=== PATIENT | female | born 1955 | race African-American/Black ===

== ENCOUNTER 2024-08-17 12:34 | Emergency (ER) | payer MEDICARE, MEDICAID, SELFPAY ==
--- NOTE | ~2024-08-17 | XR_ITS ---
EXAMINATION: XR ABDOMEN KUB CLINICAL INDICATION: constipation. abdominal pain COMPARISON: None available. TECHNIQUE: AP view of the abdomen. FINDINGS: Stool within the transverse colon. Gas throughout the intestine. No air-fluid levels. No intestinal dilatation. The dextroconvex rotoscoliosis, lumbar spine. Multilevel thoracolumbar spondylosis. Calcification overlapping the right kidney shadow, right upper quadrant abdomen. Calcifications in the lower pelvis and overlapping the right iliac bone. XR/XR KUB IMPRESSION: No intestinal obstruction pattern. Scoliosis. Multilevel thoracolumbar spondylosis. Calcifications in the right hemiabdomen cochlear exact location. Electronically signed by: José Antonio Garza MD 08/17/2024 03:06 PM QUIN RP
[2024-08-17 13:22] VITALS: BP 148/82; PULSE 79; RESP 18; TEMP 37.3; O2SAT 98; BMI 32.1
--- NOTE | 2024-08-17 13:27 | ECG_ITS ---
Test Reason : ABDOMINAL PAIN Blood Pressure : / mmHG Vent. Rate : 076 BPM Atrial Rate : 076 BPM P-R Int : 164 ms QRS Dur : 092 ms QT Int : 386 ms P-R-T Axes : 063 -21 043 degrees QTc Int : 434 ms Normal sinus rhythm with sinus arrhythmia Low voltage QRS Cannot rule out Anterior infarct , age undetermined Abnormal ECG No previous ECGs available Referred By: Leonard Yoder Electronically Signed By:Jesus Tidwell
--- NOTE | 2024-08-17 13:28 | ED.GENADULT ---
HPI - General Adult General Chief complaint: Nausea/Vomiting/Diarrhea Stated complaint: vomiting Time Seen by Provider: 08/18/24 00:40 Source: patient Mode of arrival: ambulatory Limitations: no limitations History of Present Illness ED Provider: Dr. Norma Jiménez HPI narrative: Patient comes to the emergency room complaining of nausea and vomiting caused by antibiotics and constipation. Patient states that she was diagnosed with a UTI 2 weeks ago. Patient was taking cephalexin but did not tolerate well the medication due to significant vomiting. Then, patient's antibiotics were switched to Bactrim. According to the patient, was doing better initially. Stopped taking the antibiotics after she finish her course and then started having nausea vomiting again, and back pain. Patient states that the UTI likely returned. Patient denies fever chills. Patient does not have flank pain this time. However, patient states that she is still having intermittent episodes of nausea and vomiting. Related Data Previous Rx's ?Medication ?Instructions ?Recorded levofloxacin 500 mg tablet 500 mg PO DAILY #7 tabs 08/18/24 ondansetron HCl 4 mg tablet 4 mg PO Q6H PRN nausea and 08/18/24 vomiting #14 tabs polyethylene glycol 3350 17 17 g PO DAILY PRN constipation 08/18/24 gram/dose oral powder (Miralax) #510 grams prochlorperazine maleate 5 mg 5 mg PO BID PRN nausea and 08/18/24 tablet (Compazine) vomiting #7 tabs Allergies Allergy/AdvReac Type Severity Reaction Status Date / Time sulfamethoxazole AdvReac Vomiting Verified 08/17/24 13:27 [From Bactrim] trimethoprim [From Bactrim] AdvReac Vomiting Verified 08/17/24 13:27 Review of Systems Review of Systems: Constitutional : No Weight loss, No Fever, No Chills, No Night Sweats, No Fatigue, No Malaise ENT/Mouth : No Hearing loss, No Ear Pain, No Nasal Congestion, No Sinus Pain, No Hoarseness, No sore throat, No Rhinorrhea, No Swallowing Difficulty Eyes: No Eye Pain, No Swelling, No Redness, No Foreign Body, No Discharge, No Vision Changes Cardiovascular : No Chest Pain, No SOB, No Dyspnea on Exertion, No Orthopnea, No Edema, No Palpitations Respiratory : No Cough, No Sputum, No Wheezing, No Smoke Exposure, No Dyspnea Gastrointestinal : complaining of nausea and vomiting, No Diarrhea, complaining of epigastric burning sensation, constant taste of something sour in the mouth, no flank pain, no significant abdominal pain, complaining of constipation Genitourinary : no irregular bleeding, complaining of recurrent Dysuria, No Urinary Frequency, No Hematuria, No Urinary Incontinence, No Urgency, No Flank Pain, No Urinary Flow Changes, No Hesitancy Musculoskeletal : No joint pain, No Myalgias, No Joint Swelling Skin : No Skin Lesions, No rash Neuro : No Weakness, No Numbness, No Paresthesias, No Loss of Consciousness, No Dizziness, No Headache Psych : No Anxiety/Panic, No Depression, No SI/HI/AH/VH, No Social Issues, Heme/Lymph: No Bruising, No Bleeding,No Lymphadenopathy Endocrine : No Polyuria, No Polydipsia, No Temperature Intolerance [facility] Past Medical History Medical History (Updated 08/18/24 @ 01:05 by Norma Jiménez MD) Hyperlipidemia Hypertension Social History Social History Smoked in Last 30 Days: Yes Use of substances other than those prescribed or required for medical reasons: Yes Substance Use Type: Marijuana Substance Use Frequency: Chronic Longstanding Last Used Substance: Days (ago) Any prior treatment program specific to substance use: No Advance Directives: No Advance Directives Information Provided: Yes Physical Exam ED Vital Signs: Vital Signs - 24 hr 08/17/24 21:42 08/18/24 01:33 08/18/24 02:58 Temperature 98.8 F 97.7 F 97.7 F Pulse Rate 85 70 70 Respiratory Rate 17 18 18 Blood Pressure 117/75 123/71 123/71 Pulse Oximetry 97 99 99 Oxygen Delivery Method Room Air Room Air Room Air BMI result Body Mass Index 32.1 Const Other: Appearance: Alert. Oriented X3. No acute distress. well-appearing Eyes: Pupils equal, round and reactive to light. ENT: Pharynx normal. Neck: Normal inspection. Neck supple. No lymph nodes noted. No crepitus CVS: Normal heart rate and rhythm. Pulses normal. Normal S1 and S2 Respiratory: No respiratory distress. Breath sounds normal. No Wheezing. No rales Abdomen: Soft and nontender. No rigidity. No distention. Skin: Skin warm and dry. Normal skin color. Normal skin turgor. Extremities: No lower extremity edema. No Lacerations. No Rash Neuro: Oriented X 3. No motor deficit. No sensory deficit. Moving all extremities. No slurred speech. CN 2 through 12 grossly intact Psych: calm, cooperative, normal affect Course Course Course Narrative: RME: 69 yold female presents to ED for abdominal pain, nausea vomiting, and constipation. Patient was recently treated for UTI at [facility] also be treated for constipation with no relief. Abdomen is soft benign. Patient points to epigastric area when describing location of abdominal pain. EKG labs x-ray ordered. Medications Administered Discontinued Medications Generic Name Dose Route Start Last Admin Trade Name Freq PRN Reason Stop Dose Admin Famotidine 20 mg 08/18/24 01:03 08/18/24 01:50 Famotidine/Pf 20 Mg/2 Ml Vial IVPUSH 08/18/24 01:04 20 mg ONCE ONE Administration Sodium Chloride 1,000 mls @ 999 mls/hr 08/18/24 00:54 08/18/24 02:51 Ns IVCONT 08/18/24 01:54 Infused .Q1H1M ONE Infusion Levofloxacin 500 mg 08/18/24 00:54 08/18/24 01:49 Levofloxacin 500 Mg Tablet PO 08/18/24 00:55 500 mg ONCE ONE Administration Ondansetron HCl 4 mg 08/17/24 21:42 08/17/24 21:43 Ondansetron Odt 4 Mg Tab.Rapdis TRANSLINGU 08/17/24 21:43 4 mg ONCE ONE Administration Medical Decision Making Medical Decision Making [facility] Narrative: patient receiving IV fluids, Zofran. This time, patient getting levofloxacin for UTI. Not the ideal medication for patient's age. However, patient did not tolerate cephalosporins, patient took Bactrim and now she has not no UTI. - Pyelonephritis is not suspected. Sepsis is not suspected. - Patient has a normal blood pressure, normal heart rate, no fever my interpretation of labs: Patient's hematology within normal limits, no significant chemistry abnormality, BUN and creatinine within normal limits, normal LFTs, normal lipase urine shows moderate leukocyte esterase, white blood cell counts present, +1 bacteria. There is a fair amount of Squamous epithelial cells. However, based on patient's recent history and symptoms, we will go ahead and treat as a UTI Differential Diagnosis Differential Diagnoses: The differential diagnosis associated with the presentation includes ( UTI, pyelonephritis, gastritis, peptic ulcer disease) Lab Data [facility] Lab Attestation statement: I reviewed the patient's lab results. 08/17/24 13:44 08/17/24 13:44 Labs: Lab Results 08/17/24 08/17/24 Range/Units 13:44 15:48 WBC 9.4 (4.8-10.8) X10*3/uL RBC 4.63 (4.20-5.50) X10*6/uL Hgb 14.5 (12.0-16.0) g/dl Hct 41.0 (37.0-47.0) % MCV 88.6 (80.0-98.0) fL MCH 31.3 (27.0-33.0) pg MCHC 35.4 H (31.0-35.0) g/dl RDW 13.3 (11.0-16.0) % Plt Count 346 (160-400) X10*3/uL MPV 8.4 L (9.4-12.3) fL Immature Gran % (Auto) 0.4 (0.0-0.4) % Neut % (Auto) 66.4 (45-73) % Lymph % (Auto) 25.3 (20-40) % Bowie % (Auto) 7.2 (2-11) % Eos % (Auto) 0.4 (0-4) % Baso % (Auto) 0.3 (0-2) % Lymph # (Auto) 2.4 (1.2-4.9) X10*3/uL [place]ie # (Auto) 0.7 (0.1-1.2) X10*3/uL Eos # (Auto) 0.0 (0.0-0.4) X10*3/uL Baso # (Auto) 0.0 (0.0-0.2) X10*3/uL Abs Immat Gran (auto) 0.04 H (0.00-0.03) X10*3/uL Absolute Neuts (auto) 6.3 (2.0-8.3) x10*3/uL Absolute Nucleated RBC 0.000 (0.0-0.012) X10*3/uL Nucleated RBC % (auto) 0.0 (0.0-0.2) /100WBC PT 11.6 (10.9-12.4) SEC INR 1.0 (0.9-1.1) APTT 28.9 (26.0-36.8) SEC Sodium 134 L (135-145) mmol/L Potassium 3.3 (3.3-5.1) mmol/L Chloride 101 (96-108) mmol/L Carbon Dioxide 25 (22-29) mmol/L Anion Gap 11 L (12-20) BUN 11 (9-16) mg/dL Creatinine 0.75 (0.5-1.4) mg/dL Estim Creat Clear Calc 66.5 Estimated GFR > 60 Random Glucose 119 H (60-115) mg/dL Calcium 10.3 H (8.4-10.2) mg/dL Total Bilirubin 0.5 (0.0-1.0) mg/dL AST 19 (5-31) U/L ALT 26 (0-31) U/L Alkaline Phosphatase 66 (39-117) U/L Troponin I High Sens < 2.7 (<3.5-17.0) ng/L Total Protein 7.3 (6.5-8.0) g/dL Albumin 4.4 (3.5-5.0) g/dL Lipase 26 (8-78) U/L Urine Color Yellow Urine Appearance Clear Urine pH 7.0 (5.0-9.0) Ur Specific [place] 1.025 (1.005-1.025) Urine Protein Negative (Neg-Trace) mg/dL Urine Glucose (UA) Negative (Negative) mg/dL Urine Ketones Negative (Negative) mg/dL Urine Blood Negative (Negative) Urine Nitrite Negative (Negative) Ur Leukocyte Esterase Moderate (2+) H (Negative) Urine RBC 0-2 (0-2) /HPF Urine WBC 11-20 H (0-5) /HPF Ur Squamous Epith Cells 6-10 (0-2) /HPF Urine Bacteria 1+ (None Seen) Hyaline Casts 0-2 (0-2) /LPF Independent Interpretation I performed an independent interpretation of an: Plain X-Ray Radiology Impression Discussion of test interpretation with radiology: I have reviewed the radiologist's reading. Radiologist Impression: Stool within the transverse colon. Gas throughout the intestine. No air-fluid levels. No intestinal dilatation. The dextroconvex rotoscoliosis, lumbar spine. Multilevel thoracolumbar spondylosis. Calcification overlapping the right kidney shadow, right upper quadrant abdomen. Calcifications in the lower pelvis and overlapping the right iliac bone. XR/XR KUB IMPRESSION: No intestinal obstruction pattern. Scoliosis. Multilevel thoracolumbar spondylosis. Calcifications in the right hemiabdomen cochlear exact location Critical Care Time Critical Care Time Critical Care Time: Yes Total Critical Care Time: 35 Attestation: I have personally provided critical care time. Time includes review of lab data, radiology results, discussion with consultants, and monitoring for potential decompensation. Intervention performed as documented. Discharge Plan Discharge Clinical Impression: UTI (urinary tract infection), Constipation Patient Disposition: Home, Self-Care Instructions: Constipation (ED), Urinary Tract Infection in Older Adults (ED) Additional Instructions: Please follow-up with your primary care physician tomorrow. If you have any worsening or new symptoms, please return to the emergency room or call 911 Prescriptions: New levofloxacin 500 mg tablet 500 mg PO DAILY Qty: 7 0RF ondansetron HCl 4 mg tablet 4 mg PO Q6H PRN (Reason: nausea and vomiting) Qty: 14 0RF Rx Instructions: please take nausea medication 20 minutes before your taking your antibiotic prochlorperazine maleate [Compazine] 5 mg tablet 5 mg PO BID PRN (Reason: nausea and vomiting) Qty: 7 0RF Rx Instructions: please use this medication only if Zofran does not work to help control the nausea/ vomiting polyethylene glycol 3350 [Miralax] 17 gram/dose powder 17 g PO DAILY PRN (Reason: constipation) Qty: 510 0RF Interventions: ED Discharge Assessment Last Done: 08/18/24 02:58 Discharge Date/Time: 08/18/24 02:59 Print Language: Greek
[2024-08-17 13:48] LABS: MANUAL DIFF FLAG NO
[2024-08-17 13:52] LABS: Basophils Percent Auto 0.3 % (0-2); Eosinophils Percent Auto 0.4 % (0-4); Hemoglobin 14.5 g/dl (12.0-16.0); Imm Gran Abs Auto 0.04 X10*3/uL (0.00-0.03); Imm Gran Pct Auto 0.4 % (0.0-0.4); Lymphocytes Absolute Auto 2.4 X10*3/uL (1.2-4.9); Lymphocytes Percent Auto 25.3 % (20-40); Mean Corpuscular HGB Conc 35.4 g/dl (31.0-35.0); Mean Corpuscular Hemoglobin 31.3 pg (27.0-33.0); Mean Corpuscular Volume 88.6 fL (80.0-98.0); Mean Platelet Volume 8.4 fL (9.4-12.3); Monocytes Absolute Auto 0.7 X10*3/uL (0.1-1.2); Monocytes Percent Auto 7.2 % (2-11); Neutrophils Absolute Auto 6.3 x10*3/uL (2.0-8.3); Neutrophils Percent Auto 66.4 % (45-73); Platelet Count 346 X10*3/uL (160-400); Red Blood Count 4.63 X10*6/uL (4.20-5.50); Red Cell Distribution Width 13.3 % (11.0-16.0); White Blood Count 9.4 X10*3/uL (4.8-10.8)
[2024-08-17 14:00] LABS: Prothrombin Time 11.6 SEC (10.9-12.4)
[2024-08-17 14:02] LABS: Partial Thromboplastin Time 28.9 SEC (26.0-36.8)
[2024-08-17 14:03] LABS: Alanine Aminotransferase 26 U/L (0-31); Albumin Level 4.4 g/dL (3.5-5.0); Alkaline Phosphatase 66 U/L (39-117); Anion Gap 11 (12-20); Aspartate Amino Transferase 19 U/L (5-31); Bilirubin Total 0.5 mg/dL (0.0-1.0); Blood Urea Nitrogen 11 mg/dL (9-16); Calcium 10.3 mg/dL (8.4-10.2); Carbon Dioxide 25 mmol/L (22-29); Chloride 101 mmol/L (96-108); Creatinine Clr Calc Pharmacy 66.5; Estimated Glomerular Filt Rate > 60; Glucose Random 119 mg/dL (60-115); Lipase 26 U/L (8-78); Potassium 3.3 mmol/L (3.3-5.1); Sodium 134 mmol/L (135-145); Total Protein 7.3 g/dL (6.5-8.0)
[2024-08-17 14:12] LABS: Troponin-I High Sensitivity < 2.7 ng/L (<3.5-17.0)
[2024-08-17 16:07] LABS: Appearance Urine Clear; Color Urine Yellow; Glucose Urine UA Negative (Negative); Leukocyte Esterase Urine Moderate (2+) (Negative); Nitrite Urine Negative (Negative); Specific Gravity - Urine 1.025 (1.005-1.025); UMIC TRIGGER UACC YES; Urine Blood Negative (Negative); Urine Ketones Negative (Negative); Urine Protein Negative (Neg-Trace)
[2024-08-17 16:15] LABS: Bacteria Urine 1+ (None Seen); Hyaline Casts Urine 0-2 /LPF (0-2); RBC Urine 0-2 /HPF (0-2); UACC Culture Trigger YES
[2024-08-17 21:42] VITALS: BP 117/75; PULSE 85; RESP 17; TEMP 37.1; O2SAT 97
[2024-08-17] MEDS: Ondansetron ODT 4 MG TAB.RAPDIS TRANSLINGU (21:43)
[2024-08-18 01:33] VITALS: BP 123/71; PULSE 70; RESP 18; TEMP 36.5; O2SAT 99
[2024-08-18] MEDS: 0.9 % Sodium Chloride 1,000 ML 999 ML IVCONT (01:45)
[2024-08-18] MEDS: levoFLOXacin 500 MG TABLET PO (01:49)
[2024-08-18] MEDS: Famotidine/PF 20 MG/2 ML VIAL IVPUSH (01:50)
[2024-08-18 02:58] VITALS: BP 123/71; PULSE 70; RESP 18; TEMP 36.5; O2SAT 99
== END 2024-08-18 02:59 | disposition home or self-care (01) ==
PROVIDERS: Physician Assistant; Emergency Provider Emergency Medicine; PCP Nurse Practitioner Family
DX: N39.0 Urinary tract infection, site not specified (principal); K59.00 Constipation, unspecified; R10.9 Unspecified abdominal pain; R11.2 Nausea with vomiting, unspecified; I10 Essential (primary) hypertension; E78.5 Hyperlipidemia, unspecified
CPT/HCPCS: 36415; 74018; 80053; 81001; 83690; 84484; 85025; 85610; 85730; 87086; 93005; 96361; 96374; 99284

== ENCOUNTER → 2024-08-17 13:27 | Outpatient (BNV) | payer MEDICARE, MEDICAID, SELFPAY | PROVIDERS: Emergency Provider Emergency Medicine; PCP Nurse Practitioner Family; Visit Provider Internal Medicine Cardiovascular Disease | DX: I49.8 Other specified cardiac arrhythmias (principal); R94.31 Abnormal electrocardiogram [ECG] [EKG]; R10.9 Unspecified abdominal pain | CPT/HCPCS: 93010 ==

== ENCOUNTER → 2024-08-17 13:27 | Outpatient (BNV) | payer MEDICARE, MEDICAID, SELFPAY | PROVIDERS: PCP Nurse Practitioner Family; Visit Provider Radiology Diagnostic Radiology | DX: K59.00 Constipation, unspecified (principal); R10.9 Unspecified abdominal pain; R11.10 Vomiting, unspecified | CPT/HCPCS: 74018 ==